=== PATIENT | male | born 1975 | race Caucasian/White ===

== ENCOUNTER 2016-09-27 04:22 | Emergency (ER) | payer OTHER ==
[~2016-09-27] VITALS: Ht 167.6 cm; Wt 81.8 kg
[2016-09-27 04:25] VITALS: BP 128/93; PULSE 71; RESP 18; O2SAT 98
--- NOTE | 2016-09-27 04:43 | ED.REPORT ---
HPI-Back Pain Under 40 Date of Service Sep 27, 2016 ED Provider: Amaya Kidd is a 40 y/o male who presents to the ED complaining of a month of lower back pain, with left leg numbness onset this morning. He states that he attempted to treat his symptoms with working out and stretching, with no success. Symptoms have been treated with ibuprofen, with no relief. He denies bowel and urinary incontinence, and numbness around the genitals and rectum. Patient works in a physically demanding job and works out regularly. Nursing Notes Stated Complaint: BACK PAIN/LEFT LEG NUMB Chief Complaint: Back Pain or Injury Nursing Notes Reviewed: Yes Allergies: Coded Allergies: No Known Allergies (Unverified , 09/27/16) Scheduled Prednisone (PredniSONE) 20 Mg Tablet 20 MG PO TID General Time Seen by MD: 04:42 Chief Complaint Back pain, Lumbar pain Hx Obtained From: Patient Arrived By: Walk-in Sudden in Onset?: Yes Onset Occurred: Just prior to arrival Symptom Duration: Since onset Location: : Spinal lumbar area Quality: Painful Severity: Current: Pain level 6 out of 10 Associated with: Denies: Incontinence bladder, Incontinence bowel Exacerbated by: Bending Past Medical History Past Medical History Healthy Smoking History Never Smoker Social History Alcohol Use: Denies alcohol use Drug Use: Denies drug use Ambulatory Status Independent Review of Systems Basic Review of Systems Eyes: Vision NL, No discharge ENT: Hearing NL, No pain, No nasal congestion, No pharyngeal pain Skin: No bruising, No rash, No itch Psychiatric: Normal thought content Constitutional: Reports: Chills, Denies: Fatigue, Fever Musculoskeletal: Reports: Back pain, Extremity pain, Lumbar pain Neurologic: Reports: Numbness, Denies: Bladder dysfunction, Bowel dysfunction, Headache Complete sys rev & neg: except as marked. Physical Exam Initial Vital Signs Vital Signs (First) Date Time Temp Pulse Resp B/P Pulse Ox O2 Delivery O2 Flow Rate FiO2 09/27/16 04:25 36.4 71 18 128/93 98 Room Air Initial VS: Reviewed, Vital signs abnormal Head / Eyes: Atraumatic, Normocephalic, PERRL Neck: Supple, Non-tender, Full range of motion Respiratory: Breath sounds normal, Clear to auscultation, No respiratory distress Cardiovascular: Regular rate & rhythm, Heart sounds normal, Intact distal pulses Abdomen / GI: Soft, Non-tender, No guarding, No rebound, No distention Skin: Warm, Dry, No cyanosis Psychiatric: Mood/affect normal, Behavior normal, Normal thought content General/Constitutional: Awake, Alert, Cooperative Straight Leg Raise: Positive: Strt leg raise + L 10 deg (radiates to posterior knee) tenderness of left sciatic notch area normal deep tendon reflex in lower extremities subjective dysthesia in left sciatic distribution. mild distress Neurologic: Oriented X3, Speech NL Re-Eval/Medical Decision Med Decision/Clinical Course 40-year-old male with left-sided sciatica. Placed on anti-inflammatories, steroids, and work was restricted. He will follow up with orthopedics in 5-7 days. Counseled Regarding: Diagnosis, Need for follow-up, When/why to return to ED Discharge & Departure Impression: Primary Impression: Left sided sciatica Disposition: Home All VS Reviewed: Yes Condition: Stable Patient Instructions: Sciatica (ED) Additional Instructions: Ibuprofen or naproxen. Tylenol. Prednisone 20 mg by mouth 3 times a day, #15 prescription written. Rest. No work for 2 days and then reduced activity for 2 weeks. [employer] Attestation Portions of this note were transcribed by Vu Baltazar & Jasson Melissa. I, Dr. Conde, personally performed the history, physical exam and medical decision-making; I reviewed and confirmed the accuracy of the information in the transcribed note. Signed by: Darrin Nunez, 09/27/16 and 05:40 Cristian Conde MD Sep 27, 2016 04:43 Vu Baltazar Sep 27, 2016 04:57 JASSON MELISSA Sep 27, 2016 05:37
[2016-09-27] MEDS ORDERED: Ketorolac 30 mg/mL 2 mL Inj IM ONE (05:00)
[2016-09-27] MEDS ORDERED: predniSONE 20 mg Tablet PO ONE (05:00)
[2016-09-27] MEDS ORDERED: PRE20 PO (05:12)
[2016-09-27 05:51] VITALS: BP 120/64; PULSE 64; RESP 12; O2SAT 99
== END 2016-09-27 05:40 | disposition home or self-care (01) ==
LOC: SED 04:22
DX: M54.32 Sciatica, left side (principal)
CPT/HCPCS: 96372; 99283; J1885